=== PATIENT | male | born 1985 | race Caucasian/White ===

== ENCOUNTER 2020-06-06 07:47 | Emergency (ER) | payer MEDICAID ==
[~2020-06-06] VITALS: Ht 165.1 cm; Wt 80.7 kg
[2020-06-06 07:52] VITALS: BP 139/95
--- NOTE | 2020-06-06 07:55 | NUR ---
PATIENT BIBA TO BED 12.
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
--- NOTE | 2020-06-06 08:07 | NUR ---
DR. RODRIGUEZ IS EVALUATING PT AT BEDSIDE.
[2020-06-06] MEDS ORDERED: LIDOCAINE MPF 1% 10 MG/ML VIAL INJ ONE (08:10)
--- NOTE | 2020-06-06 08:17 | NUR ---
XRAY IS AT BEDSIDE.
[2020-06-06 09:50] VITALS: BP 128/89
--- NOTE | 2020-06-06 09:50 | NUR ---
Patient discharged with v/s stable. Written and verbal after care instructions given and explained. Patient alert, oriented and verbalized understanding of instructions. Ambulatory with steady gait. All questions addressed prior to discharge. ID band removed. Patient advised to follow up with PMD. Rx of Cephalexin and Naprosyn given. Patient educated on indication of medication including possible reaction and side effects. Opportunity to ask questions provided and answered.
== END 2020-06-06 09:50 | disposition home or self-care (01) ==
LOC: MED 07:47
DX: L03.011 Cellulitis of right finger (principal); R03.0 Elevated blood-pressure reading, without diagnosis of hypertension; F17.200 Nicotine dependence, unspecified, uncomplicated
CPT/HCPCS: 10060; 73140; 90471; 90715; 99283; J2001